=== PATIENT | female | born 1995 | race Caucasian/White ===

== ENCOUNTER → 2021-02-10 | Outpatient (CLI) | payer BC | LOC: OPSV 07:00 | DX: K50.90 Crohn's disease, unspecified, without complications (principal); R53.83 Other fatigue; R10.9 Unspecified abdominal pain; D58.2 Other hemoglobinopathies; L70.9 Acne, unspecified; R19.7 Diarrhea, unspecified; K61.0 Anal abscess; B34.9 Viral infection, unspecified | CPT/HCPCS: 96360; 96361 ==